=== PATIENT | male | born 1995 | race Caucasian/White ===

== ENCOUNTER 2016-07-09 13:08 | Emergency (ER) | payer MEDICAID ==
[2016-07-09 14:00] VITALS: BP 120/72; PULSE 97; TEMP 98.6; BMI 25.0
--- NOTE | 2016-07-09 14:07 | EDPRACDOC ---
- General Information Chief Complaint: Sore Throat Stated Complaint: SORE THROAT Time Seen by Provider: 07/09/16 14:01 Information Source: Patient Mode Of Arrival: Car Home Medications: Home Medications Dicyclomine HCl [Bentyl] 20 mg PO Q8H PRN #20 tab 05/26/16 Ondansetron HCl [Zofran] 4 mg PO Q8H PRN #15 tab 05/26/16 Promethazine [Phenergan] 25 mg PO Q4-6H PRN #15 tab 05/26/16 Allergies/Adverse Reactions: Allergies Allergy/AdvReac Type Severity Reaction Status Date / Time No Known Allergies Allergy Verified 05/26/16 09:57 - History of Present Illness Onset: 4 weeks HPI: PT STATES HE HAS BEEN "SICK" FOR 4 WEEKS, STATES NON-PROD COUGH, FEVER TO 100, CONGESTION, STATES SAW PCP ON SATURDAY WAS GIVEN "PENICILLIN", STATES PCP CALLED TODAY AND TOLD HIM HIS STREP TEST WAS NEG, PT STATES HE FEELS WORSE. Sore Throat Symptoms: Reports: Pain White Spots Location: Reports: Pharynx Recent: Reports: Antibiotic Use Relevant History of: Reports: None Pain Severity: Reports: Moderate Urinary Output: Normal Oral Intake: Normal Associated Signs and Symptoms: Reports: Fever, Cough, Nasal Symptoms, Earache. Denies: Chills, Rash, Abdominal Pain ED Past Medical History - History Reviewed Yes Nurses notes reviewed and agree except as marked No Past Medical History: Yes Patient has no past medical history - Patient Medical History Psychological History: Denies: Depression - Social Medical History Smoking Status: Never smoker EDM Review of Systems - Review of Systems Constitutional: Fever. negative: Chills Eyes: negative: Blurred Vision, Double Vision Ears: Pain. negative: Drainage Throat: Pain, Erythema Nose: Congestion Respiratory: Cough. negative: Shortness of Breath, Wheezing Gastrointestinal: negative: Diarrhea, Nausea, Pain, Vomiting Neurological: negative: Headache - Physical Exam Constitutional: Alert (Awake), No apparent distress Oriented to: Time, Person, Place Last recorded Vital Signs: Last Vital Signs Temp 98.6 F 07/09/16 13:57 Pulse 97 07/09/16 13:57 Resp 18 07/09/16 13:57 BP 120/72 07/09/16 13:57 Pulse Ox 96 07/09/16 13:57 Oxygen Pulse Oxygen Saturation 96 O2 Device Room Air Oxygen Flow Rate Fraction of Inspired Oxygen ( FIO2) - HEENT Head: Normal ( normocephalic) Eye Exam: Normal (PERRL, EOMI, Sclera white) Oropharynx: Red, Tonsillar Hypertrophy, [place] Tympanic Membrane: Normal ENT EAC: Normal TMJ: Normal Nose: No Symptoms Reported (septum midline) Neck: Lymphadenopathy - Respiratory/Cardiovascular Respiratory: Normal - CTA (BBS clear to auscultation without adventitious sounds ) Cardiovascular: Normal (RRR without murmur, gallop or rub) - Integumentary Skin: Normal, Warm, Dry Lymphatics: Normal (no adenopathy) - Neurologic Memory Impaired: Normal Motor Function: Normal (Normal tone, Pulses 2+ No cyanosis or edema, FROM) Cranial Nerve: Normal (CN II-X11 intact sensation, strength 5/5) Cerebellar: Normal Mood Description: Normal Perception: Normal - Differential Diagnosis Infectious monunucleosis, Pharyngitis Streptococcal, Pharyngitis Viral - Results 07/09/16 14:28 Microbiology 07/09/16 13:56 Throat - Rapid Strep Group A Streptococcus Rapid Screen - Final NEGATIVE ("NORMAL" value = "NEGATIVE".) Laboratory Results - last 24 hr 07/09/16 14:11 Monoscreen Pos H Decision Time to Discharge: 14:28 - Departure Disposition: Home Condition: Stable Final Diagnosis: Mononucleosis Instructions: Mononucleosis (ED) Education/Counseling Given To: Patient Education/Counseling Given Regarding: Diagnosis, Treatment, Prognosis, Follow Up Referrals: None,No Provider [Primary Care Provider] - One Week Additional Instructions: REST, DRINK PLENTY OF FLUIDS, TAKE PREDNISONE DIRECTED, USE TYLENOL OR MOTRIN NEEDED FOR PAIN OR FEVER. AVOID CONTACT SPORTS LIKE FOOTBALL, BASKETBALL, AND SOCCER, RETURN TO THE ED FOR ANY WORSENING SYMPTOMS OR CONCERNS.
== END 2016-07-09 14:42 | disposition home or self-care (01) ==
LOC: EDMC 13:08
DX: B27.90 Infectious mononucleosis, unspecified without complication (principal)
CPT/HCPCS: 86308; 87880; 99282